=== PATIENT | female | born 1980 | race Caucasian/White ===

== ENCOUNTER 2016-05-23 05:25 | Inpatient (IN) | payer OTHER ==
[2016-05-23] VITALS (9 sets, daily range): BP systolic 106–122; BP diastolic 55–79
[~2016-05-23] VITALS: Ht 165.1 cm; Wt 75.0 kg
[~2016-05-23 05:25] MED LIST: BICITRA 30ML SOLN UDC PO ONE; LACTATED RINGER'S 1000 ML IV STA; LEVO112T2 PO; LR 1,000 ML IV SCH; PREN200C2 PO
[2016-05-23] MEDS ORDERED: BICITRA 30ML SOLN UDC PO ONE (05:30)
[2016-05-23 06:13] LABS: MEAN CORPUSCULAR HEMOGLOBIN 34.4 pg (27.0-33.0); MEAN CORPUSCULAR HGB CONC 35.5 g/dl (32.0-36.5); MEAN CORPUSCULAR VOLUME 96.9 fl (80.0-96.0); WHITE BLOOD COUNT 9.8 K/mm3 (4.0-10.0)
[2016-05-23] MEDS ORDERED: ONDANSETRON 4MG/2ML VIAL (J2405) IV PRN (07:40)
[2016-05-23] MEDS ORDERED: NALOXONE INJ 0.4 MG/1 ML VIAL (J2310) IV PRN ×2 (07:40)
[2016-05-23] MEDS ORDERED: METOCLOPRAMIDE INJ 10MG/2ML VIAL (J2765) IV PRN (07:40)
[2016-05-23] MEDS ORDERED: NALBUPHINE HCL 10 MG/ML AMP (J2300) IV PRN (07:40)
[2016-05-23] MEDS ORDERED: MORPHINE PRES-FREE INJ 10 MG/10 ML VIAL (J2274) As Ordered ONE (07:43)
[2016-05-23] MEDS ORDERED: OXYTOCIN INJ 10 UNITS/ML VIAL (J2590) As Ordered ONE (07:43)
[2016-05-23] MEDS ORDERED: ePHEDrine SULFATE 25 MG/5 ML(5MG/ML) SYRINGE As Ordered ONE (07:55)
[2016-05-23] MEDS ORDERED: ONDANSETRON 4MG/2ML VIAL (J2405) As Ordered ONE (07:59)
[2016-05-23] MEDS ORDERED: KETOROLAC 60 MG/2 ML VIAL (J1885) As Ordered ONE (07:59)
[2016-05-23] MEDS: DOCUSATE SODIUM 100 MG CAP PO SCH ×2 (09:00→20:23)
[2016-05-23] MEDS: PRENATAL VITAMIN TAB PO SCH (09:00)
[2016-05-23] MEDS ORDERED: MEASLES,MUMPS,RUBELLA VACCINE INJ (MMR-II) (90707) SC SCH (09:15)
[2016-05-23] MEDS ORDERED: MOM 30ML SUSPENSION UDC PO PRN (09:15)
[2016-05-23] MEDS ORDERED: RHOGAM 300 MCG (1500 IU) INJ (J2790) IM SCH (09:15)
[2016-05-23] MEDS ORDERED: PERCOCET 5MG/325MG TAB PO PRN ×2 (09:15)
[2016-05-23] MEDS ORDERED: fentaNYL 100 MCG/2 ML INJECTION (J3010) IV PRN (09:30)
[2016-05-23] MEDS ORDERED: ONDANSETRON 4MG/2ML VIAL (J2405) IV ONE (11:45)
[2016-05-23] MEDS: KETOROLAC 30 MG/ML VIAL (J1885) IV SCH ×2 (14:17→20:23)
[2016-05-23] MEDS: LR 1,000 ML IV SCH ×2 (14:20→21:15)
[2016-05-23] MEDS ORDERED: PROMETHAZINE INJ 25 MG/ML VIAL (J2550) IV ONE (15:00)
--- NOTE | 2016-05-23 19:27 | RO ---
DATE OF PROCEDURE: 05/23/2016 PREPROCEDURE DIAGNOSIS: Term intrauterine with history of prior section, declining trial of labor after (TOLAC). SECONDARY DIAGNOSES: Hypothyroidism, appropriately treated with Synthroid. Advanced maternal age. Gestational thrombocytopenia. POSTPROCEDURE DIAGNOSIS: Term intrauterine with history of prior section, declining TOLAC. Hypothyroidism, appropriately treated with Synthroid. Advanced maternal age. Gestational thrombocytopenia. Delivered. OPERATIVE PROCEDURE: Repeat low transverse section. SURGEON: Caitlin Menchaca MD RIG BUILDER HELPER: Porsche Herrera MD ANESTHESIA: Spinal Anesthesia MATERIAL THAT WENT TO THE LAB FOR EXAMINATION: None. INDICATION FOR OPERATION: Yolanda is a 36-year-old G2, now P2-0-0-2 who was admitted at 39 weeks and 1 day for scheduled elective repeat low transverse section. 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 DESCRIPTION OF FINDINGS: Male in the occiput anterior (OA) position. 8 and 9. Weight 3890 grams or 8 pounds 9 ounces. Normal appearing uterus, ovaries and fallopian tubes. She had a keloid scar from the previous section that was excised. INFECTION CLASSIFICATION: 2. ESTIMATED BLOOD LOSS: 500 mL. FLUIDS: 1800 mL of lactated ringers. URINE OUTPUT: 200 mL of yellow colored urine. DESCRIPTION OF PROCEDURE: Yolanda was taken to the operating room, spinal anesthesia was administered. Horowitz catheter and bilateral sequential compression devices were placed. She received 2 grams of IV Ancef preoperatively. She was prepped and draped in normal sterile fashion in dorsal supine position with a left lateral tilt. Time out was performed to confirm patient name, date of , procedure and indication. Surgical team, nursing staff, and anesthesia were all in agreement. Spinal anesthesia was found to be adequate using Allis clamp. An ellipse incision was made with the scalpel around the prior keloid scar and it was excised and removed from the field. The Pfannenstiel skin incision was then carried down through the underlying layer of fascia with the Bovie. The fascia was incised in the midline and the incision was extended laterally with Teran scissors. Superior and inferior aspects of the fascial incision were grasped with Aashish clamps, elevated and the underlying rectus muscles were dissected off bluntly and sharply. Peritoneum was entered digitally and the rectus muscles were in the midline. Peritoneal incision was extended superiorly and inferiorly with good visualization of the bladder. Bladder blade was inserted and the vesicouterine peritoneum was identified, grasped with pickups and entered sharply with Metzenbaum scissors. Incision was extended laterally and the bladder flap was created digitally. Bladder blade was reinserted and the lower uterine segment was scored in a transverse fashion with a scalpel. The uterus was entered bluntly and the incision extended with traction with clear amniotic fluid noted. Bladder blade was removed and the 's head was elevated to the level of the incision. Fundal pressure was applied. Head was delivered atraumatically in the OA position. Anterior shoulder, posterior shoulder and corpus were delivered without difficulty. Nose and mouth were suctioned with bulb suction and the cord was clamped times two and cut. The infant was handed off to the nursing team. Placenta was removed with traction on the cord and massage of the uterus and then the uterus was exteriorized, cleared of all clot and debris. Uterine incision was repaired using #0 Vicryl suture in a running locking fashion and a second layer of #0-Monocryl suture was used to close the hysterotomy incision in an imbricating fashion. Uterine incision was inspected and full hemostasis was noted. Posterior cul-de-sac was irrigated and the uterus returned to the abdomen. Gutters were cleared of all clots with hemostasis noted. Fascia was reapproximated with #0 Vicryl suture in a running fashion. Subcutaneous tissue was copiously irrigated. Lester's fascia reapproximated using #3-0 Vicryl suture in a running fashion. Skin edges were reapproximated using three inverted interrupted stitches, using #3-0 Vicryl suture followed by a running subcuticular stitch using #4-0 Monocryl suture. The incision was cleaned using a wet lap. Dried with a dry lap. Steri-Strips were applied in the usual fashion perpendicular to Pfannenstiel incision. Telfa was layered on top of the Steri-Strips followed by dry sterile towel. Surgical drapes were removed. Sterile towel was removed and pressure dressing applied over the surgical incision. Vagina was cleared of blood clots without active bleeding noted. Fundus was firm at U-2 cm. All counts were correct times two. The procedure was without complication and she tolerated the procedure well. Yolanda was taken to the recovery room on labor and delivery in stable condition. PATRICIA
[2016-05-24 01:38] VITALS: BP 96/53
[2016-05-24] MEDS: KETOROLAC 30 MG/ML VIAL (J1885) IV SCH (02:13)
[2016-05-24 06:07] VITALS: BP 103/63
[2016-05-24 06:52] LABS: MEAN CORPUSCULAR VOLUME 100.2 fl (80.0-96.0); RED CELL DISTRIBUTION WIDTH 13.4 % (11.5-14.5)
[2016-05-24] MEDS: DOCUSATE SODIUM 100 MG CAP PO SCH ×2 (09:58→21:04)
[2016-05-24] MEDS: PRENATAL VITAMIN TAB PO SCH (09:58)
[2016-05-24] MEDS: IBUPROFEN 800 MG TAB PO SCH ×2 (09:59→18:08)
[2016-05-24 10:00] VITALS: BP 130/70
--- NOTE | 2016-05-24 11:39 | IPN ---
DATE: 05/24/2016 This lady requested circumcision of her male after discussing risks and benefits of circumcision, the penile block, the aftercare. She expressed understanding of the procedure, the penile block, aftercare, risks and benefits, signed and witnessed the consent form. We await the clearance by the door manager for the procedure.
[2016-05-24 14:00] VITALS: BP 108/62
[2016-05-24 18:15] VITALS: BP 117/64
[2016-05-24 22:11] VITALS: BP 118/60
[2016-05-25] MEDS: IBUPROFEN 800 MG TAB PO SCH ×2 (01:30→10:29)
[2016-05-25 06:19] VITALS: BP 106/56
--- NOTE | 2016-05-25 07:42 | IPNPDOC ---
Text Note Date of Service The patient was seen on 05/25/16. NOTE PPD#2 s/p RLTCS S: Yolanda is a 36yo [id number] s/p uncomplicated RLTCS at 39w1d performed . She is doing very well with pain controlled, lochia minimal, voiding spontaneously without problem, tolerating a regular diet, ambulating without difficulty. No f/c/n/v/RODNEY/SOB/CP/leg pain. Breast feeding with ease. Undecided for contraception. O: normotensive, nml HR, afebrile General: WDWN, resting comfortably in bed H: RRR no m/g/r L: CTA b/l no w/c/r/r Abd: soft, appropriately tender, and FF at U-1cm nontender; steri strips in place over pfannensteil incision with no erythema/induration/drainage Ext: no c/c/e Labs: 05/23 H/H 13.2/37.3 05/24 H/H 10.3/30.5 A/P: Yolanda is a 36yo [id number] s/p uncomplicated RLTCS at 39w1d performed 05/23, doing well on PPD#2. Hemodynamically stable, afebrile with no evidence of infection, good pain control. Plan: -discharge to home today -vaginal rest x 6 weeks -incision check with Dr. Menchaca in clinic in 2 weeks as scheduled -given home meds from [facility] stock: percocet/motrin/lanolin/miralax Dr. Lauren Menchaca MD [place] [facility],Kathiae, I+O VSBrenden, I+O Vital Signs Date Time Temp Pulse Resp B/P Pulse Ox O2 Delivery O2 Flow Rate FiO2 05/25/16 06:19 96.9 56 20 106/56 05/24/16 22:11 99 05/24/16 18:15 Room Air LAUREN MENCHACA MD May 25, 2016 07:42
--- NOTE | 2016-05-25 07:48 | DS.PDOC ---
Discharge Summary General Date of Admission May 23, 2016 at 05:25 Date of Discharge May 25, 2016 Attending Physician: LAUREN MENCHACA MD Discharge Summary PROCEDURES PERFORMED DURING STAY: Repeat low transverse section COMPLICATIONS/CHIEF COMPLAINT: History Prior Section with term gestation, declines trial of labor after ADMISSION DIAGNOSES: 1. Term intrauterine at 39 weeks 1 day with history of prior desiring repeat, declining trial of labor 2. Advanced maternal age 3. Hypothyroidism effectively treated with synthroid 4. Gestational thrombocytopenia DISCHARGE DIAGNOSES: 1. Term intrauterine at 39 weeks 1 day with history of prior desiring repeat, declining trial of labor 2. Advanced maternal age 3. Hypothyroidism effectively treated with synthroid 4. Gestational thrombocytopenia HISTORY OF PRESENT ILLNESS/HOSPITAL COURSE: Yolanda is a 36yo [id number] s/p uncomplicated repeat low transverse section at 39w1d performed 05/23/16 with benign /post-operative course. Hemodynamically stable, afebrile with no evidence of infection, good pain control. DISCHARGE MEDICATIONS: percocet/motrin/lanolin/miralax ALLERGIES: Please see below. PHYSICAL EXAMINATION ON DISCHARGE: VITAL SIGNS: normotensive, nml HR, afebrile General: WDWN, resting comfortably in bed Heart: RRR no m/g/r Lungs: CTA b/l no w/c/r/r Abdomen: soft, appropriately tender, and FF at U-1cm nontender; steri strips in place over pfannensteil incision with no erythema/induration/drainage Extremities: no c/c/e LABORATORY DATA: Please see below. 05/23 H/H 13.2/37.3 05/24 H/H 10.3/30.5 IMAGING: none VTE Prophylaxis ordered?: none indicated DISCHARGE CONDITION: Stable DISPOSITION: home ACTIVITY: as tolerated, vaginal rest 6 weeks DIET: regular DISCHARGE PLAN AND INSTRUCTIONS: 1. Vaginal rest for 6 weeks 2. Incision check with Dr. Menchaca in 2 weeks as scheduled 3. Return precautions given for fevers/chills/abdominal or breast pain/evidence of incision infection such as redness/drainage TIME SPENT ON DISCHARGE: Greater than [address] Lauren Menchaca MD [place] [facility] Vital Signs/I&Os Vital Signs Date Time Temp Pulse Resp B/P Pulse Ox O2 Delivery O2 Flow Rate FiO2 05/25/16 06:19 96.9 56 20 106/56 05/24/16 22:11 99 05/24/16 18:15 Room Air Medications Scheduled Levothyroxine Sodium (Synthroid) 112 Mcg Tab 112 MCG PO DAILY Multivitamins/ ( Dha) 200 Mg Cap 200 MG PO DAILY Allergies Uncoded Allergies: ADHESIVE (Allergy, Mild, itching, redness,irritation to skin, 05/16/16) LAUREN MENCHACA MD May 25, 2016 07:48
[2016-05-25] MEDS: DOCUSATE SODIUM 100 MG CAP PO SCH (08:04)
[2016-05-25] MEDS: PRENATAL VITAMIN TAB PO SCH (08:04)
[2016-05-25] MEDS ORDERED: IBUP-1114 PO (10:37)
[2016-05-25] MEDS ORDERED: OXYC1TAB23 PO (10:37)
== END 2016-05-25 11:41 | disposition home or self-care (01) | DRG 765 ==
LOC: M LDI 05:25 → M OBS 11:45
PROVIDERS: ADMIT Obstetrics & Gynecology; ATTEND Obstetrics & Gynecology
PROC: 10D00Z1 Extraction of Products of Conception, Low, Open Approach (ICD-10-PCS; principal; 2016-05-23 07:30)
DX: O34.211 Maternal care for low transverse scar from previous cesarean delivery (principal); O99.12 Other diseases of the blood and blood-forming organs and certain disorders involving the immune mechanism complicating childbirth; O99.284 Endocrine, nutritional and metabolic diseases complicating childbirth; Z37.0 Single live birth; Z3A.39 39 weeks gestation of pregnancy; E03.9 Hypothyroidism, unspecified; D69.6 Thrombocytopenia, unspecified; O99.72 Diseases of the skin and subcutaneous tissue complicating childbirth; L91.0 Hypertrophic scar; Z79.899 Other long term (current) drug therapy

== ENCOUNTER → 2018-01-29 | Outpatient (REF) | payer OTHER | LOC: M LAB REF 22:02 | DX: J02.9 Acute pharyngitis, unspecified (principal) ==